=== PATIENT | male | born 1940 | race Caucasian/White ===

== ENCOUNTER 2025-05-20 07:33 | Day surgery (SDC) | payer MEDICARE ==
[2025-05-18 12:09] LABS: BASOPHILS % 0.7 % (0.0-1.0); EOSINOPHILS % 4.2 % (0.0-6.0); LYMPHOCYTES % 21.6 % (18.0-39.1); MONOCYTES % 10.4 % (4.4-11.3); NEUTROPHILS % 62.6 % (38.7-80.0); RED CELL DISTRIBUTION WIDTH 12.2 % (11.7-14.4)
[2025-05-18 12:59] LABS: INR 1.15
[2025-05-18 13:07] LABS: CHOL/HDL RATIO 2.5 (3.9-4.7); EST GLOMERULAR FILTRATION RATE 33.0 ML/MIN (>=60); LDL CHOLESTEROL 84.0 MG/DL (60-130)
[2025-05-20] VITALS (16 sets, daily range): BP systolic 118–172; BP diastolic 52–89; PULSE 55–70; RESP 11–21; TEMP 97.5–97.6; O2SAT 95–99
[~2025-05-20] VITALS: Ht 172.7 cm; Wt 67.1 kg
[~2025-05-20 07:33] MED LIST: CLOPIDOGREL75 MG PO; FLOMAX0.4 MG PO; HYDRALAZINE HCL25 MG PO; ISOSORBIDE MONO30 MG PO; LISINOPRIL10 MG PO; METOPROLOL SUCC25 MG PO; PANTOPRAZOLE SO40 MG PO; SIMVASTATIN40 MG PO
[2025-05-20] MEDS ORDERED: VERAPAMIL HCL 2.5 MG/ML 2 ML VIAL ONE (09:07)
[2025-05-20] MEDS ORDERED: LIDOCAINE HCL 2% LOCAL 20 ML VIAL ONE (09:07)
[2025-05-20] MEDS ORDERED: IOPAMIDOL 370 MG/ML 100 ML INFUS..BTL INJ ONE (09:07)
[2025-05-20] MEDS ORDERED: SODIUM CHLORIDE 0.9% 1000ML 1,000 ML ONE (09:07)
[2025-05-20] MEDS ORDERED: HEPARIN SOD/SOD CHLORIDE 2,000 ML ONE (09:07)
[2025-05-20] MEDS ORDERED: MIDAZOLAM HCL 2 MG/2 ML VIAL ONE ×2 (09:22→09:27)
[2025-05-20] MEDS ORDERED: FENTANYL CITRATE/PF 100MCG/2 ML INJ ONE (09:23)
[2025-05-20] MEDS ORDERED: CLOPIDOGREL BISULFATE 75 MG TAB ONE (10:12)
[2025-05-20] MEDS ORDERED: ASPIRIN 325 MG TAB ONE (10:12)
== END 2025-05-20 15:15 | disposition home or self-care (01) ==
LOC: CATH LAB 07:33
PROVIDERS: ATTEND Internal Medicine Cardiovascular Disease
DX: I25.110 Atherosclerotic heart disease of native coronary artery with unstable angina pectoris (principal); R94.39 Abnormal result of other cardiovascular function study; I47.20 Ventricular tachycardia, unspecified; I25.2 Old myocardial infarction; I10 Essential (primary) hypertension; Z71.89 Other specified counseling; Z95.5 Presence of coronary angioplasty implant and graft; Z95.810 Presence of automatic (implantable) cardiac defibrillator; Z71.3 Dietary counseling and surveillance; Z88.1 Allergy status to other antibiotic agents; Z88.2 Allergy status to sulfonamides; Z01.810 Encounter for preprocedural cardiovascular examination; Z01.812 Encounter for preprocedural laboratory examination; Z01.818 Encounter for other preprocedural examination; Z79.82 Long term (current) use of aspirin; Z79.899 Other long term (current) drug therapy
CPT/HCPCS: 36415; 71046; 76937; 80048; 80061; 85025; 85610; 85730; 93005; C1725 ×2; C1769; C1874; C1887 ×2; C9600; J2003; J2250; J3010; J7030; Q9967; 92928; 93454; 99152; 99153